=== PATIENT | female | born 1940 | race Caucasian/White ===

== ENCOUNTER 2021-04-05 08:38 | Outpatient (CLI) | payer MEDICARE | END 2021-04-05 08:39 | disposition home or self-care (01) | LOC: CSHRAD 08:38 | PROVIDERS: ATTEND Internal Medicine Cardiovascular Disease | DX: R06.02 Shortness of breath (principal); R06.00 Dyspnea, unspecified; M41.9 Scoliosis, unspecified; Z95.0 Presence of cardiac pacemaker | CPT/HCPCS: 71046 ==

== ENCOUNTER 2021-06-21 10:45 | Outpatient (CLI) | payer MEDICARE ==
[2021-06-21 20:27] LABS: SARS-CoV-2 PCR by NAA Not Detected (NotDetected)
== END 2021-06-21 10:46 | disposition home or self-care (01) ==
LOC: CSHLAB 10:45
PROVIDERS: ATTEND Internal Medicine
DX: Z20.822 Contact with and (suspected) exposure to COVID-19 (principal); Z01.812 Encounter for preprocedural laboratory examination; R13.10 Dysphagia, unspecified
CPT/HCPCS: U0003; U0005

== ENCOUNTER 2021-06-24 09:11 | Outpatient (CLI) | payer MEDICARE | END 2021-06-24 09:12 | disposition home or self-care (01) | LOC: CSHRAD 09:11 | PROVIDERS: ATTEND Internal Medicine | DX: R13.10 Dysphagia, unspecified (principal); K21.9 Gastro-esophageal reflux disease without esophagitis | CPT/HCPCS: 74220 ==

== ENCOUNTER 2022-10-03 15:58 | Outpatient (CLI) | payer MEDICARE | END 2022-10-03 15:59 | disposition home or self-care (01) | LOC: CSHRAD 15:58 | PROVIDERS: ATTEND Nurse Practitioner Adult Health | DX: M25.551 Pain in right hip (principal); W18.30XA Fall on same level, unspecified, initial encounter ==

== ENCOUNTER 2022-10-27 13:28 | Outpatient (CLI) | payer MEDICARE | END 2022-10-27 13:29 | disposition home or self-care (01) | LOC: CSHRAD 13:28 | PROVIDERS: ATTEND Physical Medicine & Rehabilitation | DX: M25.562 Pain in left knee (principal); M17.12 Unilateral primary osteoarthritis, left knee; M25.462 Effusion, left knee ==

== ENCOUNTER 2023-09-12 16:32 | Inpatient (IN) | payer MEDICARE, OTHER ==
[2023-09-12 17:35] LABS: #Eosinphils 0.2 10x3/uL (0.0-0.5); #Monocytes 0.7 10x3/uL (0.0-1.1); #Neutrophils 3.4 10x3/uL (1.5-8.4); %Basophils 0.4 % (0.0-2.0); %Eosinophils 4.1 % (0.0-6.0); %Lymphocytes 19.3 % (18.0-47.0); %Monocytes 13.5 % (0.0-10.0); %Neutrophils 62.5 % (40.0-75.0); Hematocrit 28.9 % (34.9-44.5); Hemoglobin 8.9 g/dL (12.0-15.5); Mean Corpuscular HGB CONC 30.8 g/dL (32.0-36.0); Mean Corpuscular Hemoglobin 25.1 pg (27.0-33.0); Mean Corpuscular Volume 81.4 fl (81.6-98.3); Mean Platelet Volume 11.1 fl (7.4-10.4); Platelet Count 193 10x3/uL (150-450); RBC Distribution Width 17.1 % (11.5-14.5); Red Blood Cell (RBC) Count 3.55 10x6/uL (3.90-5.03); White Blood Cell (WBC) Count 5.4 10x3/uL (3.5-10.5)
[2023-09-12 17:42] LABS: ALT (SGPT) 14 U/L (8-55); AST (SGOT) 18 U/L (5-34); Albumin 3.8 g/dL (3.4-4.8); Alkaline Phosphatase 49 U/L (40-110); Anion Gap 12 mmol/L (10-20); BUN (Urea Nitrogen) 25 mg/dL (9.8-20.1); Bilirubin, Total 0.4 mg/dL (0.2-1.2); Calc. Creatinine Clearance 0 mL/min (70-130); Calcium 8.7 mg/dL (7.8-10.44); Carbon Dioxide 22 mmol/L (23-31); Chloride 107 mmol/L (98-107); Estimated GFR 28; Globulin 2.1 g/dL (2.4-3.5); Glucose 115 mg/dL (83-110); Magnesium 2.3 mg/dL (1.6-2.6); Potassium 4.4 mmol/L (3.5-5.1); Protein, Total 5.9 g/dL (5.8-8.1); Sodium 137 mmol/L (136-145)
[2023-09-12 17:49] LABS: Troponin I 0.011 ng/mL (< 0.028)
[2023-09-12] MEDS ORDERED: Aspirin Chewable 81 MG TAB ONE (18:12)
[2023-09-12 18:19] LABS: INR-International Normal Ratio 1.2; PTT 31.7 sec (22.0-33.0)
[2023-09-12] MEDS ORDERED: Albuterol 2.5 MG (3 mL) NEB ONE (18:29)
[2023-09-12] MEDS ORDERED: Ipratropium Bromide 2.5 ml Neb ONE (18:29)
[2023-09-12] MEDS ORDERED: Calcium Carbonate 500 MG ChewTAB PO PRN (20:04)
[2023-09-12] MEDS ORDERED: Senokot S 8.6-50 MG TAB PO PRN (20:04)
[2023-09-12] MEDS ORDERED: Guaifenesin DM 100-10/5 ML UDCUP PO PRN (20:04)
[2023-09-12] MEDS ORDERED: Ondansetron PF 4 MG/2 ML Vial IVP PRN (20:04)
[2023-09-12] MEDS ORDERED: Ipratropium/Albuterol 3 ML NEB NEB PRN (20:18)
[2023-09-12] MEDS ORDERED: Sodium Chloride 0.9% 1,000 ML IV SCH (21:00)
[2023-09-12] MEDS ORDERED: Enoxaparin 80 MG (0.8 mL) SYRINGE SC SCH (22:30)
[2023-09-12] MEDS: Simvastatin 10 MG TAB PO SCH (23:04)
[2023-09-12] MEDS: guaiFENesin ER 600 MG TAB PO SCH (23:04)
[2023-09-12] MEDS: Benzonatate 100 MG CAP PO SCH (23:04)
[2023-09-12] MEDS: Pregabalin 25 MG CAP PO SCH (23:04)
[2023-09-12] MEDS: rOPINIRole HCl 1 MG TAB PO SCH (23:05)
[2023-09-12] MEDS: Montelukast Sodium 10 mg Tablet PO SCH (23:05)
[2023-09-12 23:59] LABS: SARS-CoV-2 NAA Rapid Test Not Detected (NotDetected)
[2023-09-13 00:54] VITALS: BMI 30.7
[2023-09-13 01:50] LABS: Bilirubin Neg (Negative); Blood, Urine 50 (Negative); Glucose, Urine (Dipstick) Normal (Negative); Ketone, Urine Negative (Negative); Leukocyte 500 (Negative); Nitrite Negative (Negative); Protein, Urine (Dipstick) 30 mg/dl (Neg-Trace); Specific Gravity, Urine 1.025 (1.005-1.030); Urobilinogen Normal mg/dL (Less than 2)
[2023-09-13 02:01] LABS: Clarity Hazy (Clear)
[2023-09-13 02:03] LABS: Bacteria/HPF None Seen HPF (None Seen); Squamous Epithelial 0-3 HPF (0-3)
[2023-09-13 05:31] LABS: #Eosinphils 0.2 10x3/uL (0.0-0.5); #Monocytes 0.7 10x3/uL (0.0-1.1); #Neutrophils 3.1 10x3/uL (1.5-8.4); %Basophils 0.2 % (0.0-2.0); %Eosinophils 4.6 % (0.0-6.0); %Lymphocytes 19.3 % (18.0-47.0); %Monocytes 14.1 % (0.0-10.0); %Neutrophils 61.4 % (40.0-75.0); Hematocrit 26.3 % (34.9-44.5); Mean Corpuscular HGB CONC 30.4 g/dL (32.0-36.0); Mean Corpuscular Hemoglobin 24.4 pg (27.0-33.0); Mean Corpuscular Volume 80.2 fl (81.6-98.3); Mean Platelet Volume 10.8 fl (7.4-10.4); Platelet Count 161 10x3/uL (150-450); Red Blood Cell (RBC) Count 3.28 10x6/uL (3.90-5.03)
[2023-09-13 05:54] LABS: Anion Gap 13 mmol/L (10-20); BUN (Urea Nitrogen) 23 mg/dL (9.8-20.1); Calc. Creatinine Clearance 33 mL/min (70-130); Calcium 8.4 mg/dL (7.8-10.44); Carbon Dioxide 21 mmol/L (23-31); Cardiac Risk 2.4 (Less than 4.5); Chloride 107 mmol/L (98-107); Cholesterol 114 mg/dl (< 200 Desired); Estimated GFR 36; Glucose 112 mg/dL (83-110); HDL Cholesterol 47 mg/dL (>60 Neg Risk); Iron 32 ug/dL (50-170); Iron Binding Capacity, Total 328 mcg/dL (265-497); LDL Cholesterol, Calculated 51 mg/dL; Potassium 4.1 mmol/L (3.5-5.1); Sodium 137 mmol/L (136-145); Triglycerides 78 mg/dL (Less than 150)
[2023-09-13 06:10] LABS: Thyroid Stimulating Hormone 2.4077 uIU/mL (0.35-4.94)
[2023-09-13] MEDS: Mometasone/Formoterol 200/5 60 PUFF INH SCH ×2 (07:30→19:17)
[2023-09-13] MEDS: Ipratropium/Albuterol 3 ML NEB NEB SCH ×3 (07:30→19:17)
[2023-09-13] MEDS: cefTRIAXone\\ROCEPHIN 1 GM in Sodium Chloride 0.9% 100 ML IVPB SCH (07:57)
[2023-09-13] MEDS: Multivitamin W/ Minerals 1 TAB PO SCH (08:52)
[2023-09-13] MEDS: Benzonatate 100 MG CAP PO SCH ×3 (08:53→21:00)
[2023-09-13] MEDS: BuPROPion XL 150 MG ER.TAB PO SCH (08:53)
[2023-09-13] MEDS: Sertraline 25 MG TAB PO SCH (08:53)
[2023-09-13] MEDS: guaiFENesin ER 600 MG TAB PO SCH ×2 (08:54→21:01)
[2023-09-13] MEDS: Atenolol 25 MG TAB PO SCH (08:54)
[2023-09-13] MEDS: Ferrous Sulfate 325 MG TAB PO SCH (08:54)
[2023-09-13] MEDS ORDERED: Clopidogrel Bisulfate 75 MG TAB PO SCH (09:00)
[2023-09-13 09:17] LABS: Ferritin 9.38 ng/mL (10-291)
[2023-09-13 12:41] LABS: Hemoglobin A1c 5.9 % (4.0-6.0)
[2023-09-13] MEDS: Pregabalin 25 MG CAP PO SCH ×2 (15:50→21:00)
[2023-09-13] MEDS ORDERED: Rivaroxaban 10 MG TAB PO SCH (18:00)
[2023-09-13] MEDS ORDERED: Aspirin 81 mg Enteric Coated Tablet PO SCH (18:00)
[2023-09-13] MEDS ORDERED: Enoxaparin 80 MG (0.8 mL) SYRINGE SC SCH (21:00)
[2023-09-13] MEDS: Simvastatin 10 MG TAB PO SCH (21:01)
[2023-09-13] MEDS: Montelukast Sodium 10 mg Tablet PO SCH (21:01)
[2023-09-13] MEDS: rOPINIRole HCl 1 MG TAB PO SCH (21:01)
[2023-09-13] MEDS: Acetaminophen 325 MG TAB PO PRN (21:01)
[2023-09-14] MEDS: cefTRIAXone\\ROCEPHIN 1 GM in Sodium Chloride 0.9% 100 ML IVPB SCH (05:52)
[2023-09-14] MEDS: Ipratropium/Albuterol 3 ML NEB NEB SCH ×2 (06:55→18:45)
[2023-09-14] MEDS: Mometasone/Formoterol 200/5 60 PUFF INH SCH ×2 (07:05→18:45)
[2023-09-14] MEDS: guaiFENesin ER 600 MG TAB PO SCH ×2 (08:21→20:51)
[2023-09-14] MEDS: Sertraline 25 MG TAB PO SCH (08:22)
[2023-09-14] MEDS: BuPROPion XL 150 MG ER.TAB PO SCH (08:22)
[2023-09-14] MEDS: Atenolol 25 MG TAB PO SCH (08:22)
[2023-09-14] MEDS: Aspirin 81 mg Enteric Coated Tablet PO SCH (08:22)
[2023-09-14] MEDS: Multivitamin W/ Minerals 1 TAB PO SCH (08:22)
[2023-09-14] MEDS: Ferrous Sulfate 325 MG TAB PO SCH (08:23)
[2023-09-14 08:44] LABS: Anion Gap 12 mmol/L (10-20); BUN (Urea Nitrogen) 15 mg/dL (9.8-20.1); Calc. Creatinine Clearance 57 mL/min (70-130); Calcium 8.5 mg/dL (7.8-10.44); Carbon Dioxide 22 mmol/L (23-31); Chloride 109 mmol/L (98-107); Estimated GFR 70; Glucose 85 mg/dL (83-110); Potassium 3.7 mmol/L (3.5-5.1); Sodium 139 mmol/L (136-145)
[2023-09-14] MEDS: Pregabalin 25 MG CAP PO SCH ×2 (11:00→20:50)
[2023-09-14] MEDS ORDERED: Rivaroxaban 10 MG TAB PO SCH (17:00)
[2023-09-14] MEDS: Simvastatin 10 MG TAB PO SCH (20:50)
[2023-09-14] MEDS: rOPINIRole HCl 1 MG TAB PO SCH (20:50)
[2023-09-14] MEDS: Montelukast Sodium 10 mg Tablet PO SCH (20:51)
[2023-09-14] MEDS: Acetaminophen 325 MG TAB PO PRN (22:25)
[2023-09-15] MEDS: Aspirin 81 mg Enteric Coated Tablet PO SCH (08:48)
[2023-09-15] MEDS: Pregabalin 25 MG CAP PO SCH (08:48)
[2023-09-15] MEDS: BuPROPion XL 150 MG ER.TAB PO SCH (08:48)
[2023-09-15] MEDS: Ferrous Sulfate 325 MG TAB PO SCH (08:48)
[2023-09-15] MEDS: Sertraline 25 MG TAB PO SCH (08:48)
[2023-09-15] MEDS: guaiFENesin ER 600 MG TAB PO SCH (08:48)
[2023-09-15] MEDS: Atenolol 25 MG TAB PO SCH (08:48)
[2023-09-15] MEDS: Multivitamin W/ Minerals 1 TAB PO SCH (08:48)
[2023-09-15] MEDS: Acetaminophen 325 MG TAB PO PRN (08:54)
[2023-09-15] MEDS ORDERED: hydrALAZINE 25 MG TAB PO PRN (09:07)
[2023-09-15] MEDS: Ipratropium/Albuterol 3 ML NEB NEB SCH (09:10)
[2023-09-15] MEDS: Mometasone/Formoterol 200/5 60 PUFF INH SCH (09:20)
[2023-09-15 12:38] VITALS: TEMP 98
[2023-09-15 14:16] VITALS: BP 174/98
== END 2023-09-15 14:38 | DRG 69 ==
LOC: CSHERS 16:32 → CSHTELE 19:28 → OBSVTOIN 09-14 09:48
PROVIDERS: ADMIT Student in an Organized Health Care Education/Training Program; ATTEND Internal Medicine
PROC: 4A0D7BZ Measurement of Urinary Pressure, Via Natural or Artificial Opening (ICD-10-PCS; principal; 2023-09-14)
DX: I67.82 Cerebral ischemia (principal); G45.9 Transient cerebral ischemic attack, unspecified; N17.9 Acute kidney failure, unspecified; J44.9 Chronic obstructive pulmonary disease, unspecified; D64.9 Anemia, unspecified; I12.9 Hypertensive chronic kidney disease with stage 1 through stage 4 chronic kidney disease, or unspecified chronic kidney disease; N18.9 Chronic kidney disease, unspecified; I49.5 Sick sinus syndrome; E78.5 Hyperlipidemia, unspecified; G25.81 Restless legs syndrome; I25.10 Atherosclerotic heart disease of native coronary artery without angina pectoris; G47.33 Obstructive sleep apnea (adult) (pediatric); F41.9 Anxiety disorder, unspecified; R53.81 Other malaise; D50.9 Iron deficiency anemia, unspecified; I48.0 Paroxysmal atrial fibrillation; F32.A Depression, unspecified; Z79.899 Other long term (current) drug therapy; Z95.1 Presence of aortocoronary bypass graft; Z87.891 Personal history of nicotine dependence; Z95.0 Presence of cardiac pacemaker; Z11.52 Encounter for screening for COVID-19
CPT/HCPCS: 0241U; 36415; 51798; 70450; 70551; 71045; 80048; 80053; 80061; 81001; 82728; 83036; 83540; 83550; 83735; 83880; 84443; 84484; 85025; 85610; 85730; 87086; 93005; 93306; 93880; 94640; 96372; 96374; 96376; G0378; J0696; J1650; J3490; J7050; J7611; J7620

== ENCOUNTER 2025-04-20 06:58 | Inpatient (IN) | payer OTHER ==
[2025-04-20] MEDS ORDERED: Dexamethasone 10 MG/ML VIAL ONE (07:35)
[2025-04-20 07:39] LABS: #Basophils Less than 0.03 10x3/uL (0.0-0.2); #Eosinophils 0.11 10x3/uL (0.0-0.5); #Monocytes 0.63 10x3/uL (0.0-1.1); #Neutrophils 3.48 10x3/uL (1.5-8.4); %Basophils 0.2 % (0.0-2.0); %Eosinophils 2.3 % (0.0-6.0); %Lymphocytes 13.1 % (18.0-47.0); %Monocytes 12.9 % (0.0-10.0); %Neutrophils 71.3 % (40.0-75.0); Hematocrit 35.6 % (34.9-44.5); Hemoglobin 11.3 g/dL (12.0-15.5); Mean Corpuscular Hemoglobin 26.7 pg (27.0-33.0); Mean Corpuscular Volume 84.0 fL (81.6-98.3); Platelet Count 101 10x3/uL (150-450); Red Blood Cell (RBC) Count 4.24 10x6/uL (3.90-5.03); White Blood Cell (WBC) Count 4.88 10x3/uL (3.5-10.5)
[2025-04-20 07:52] LABS: ALT (SGPT) 18 U/L (Less than 34); AST (SGOT) 25 U/L (11-34); Albumin 3.7 g/dL (3.1-4.5); Alkaline Phosphatase 66 U/L (40-110); Anion Gap 16 mmol/L (10-20); BUN (Urea Nitrogen) 10 mg/dL (9.8-20.1); Bilirubin, Total 0.8 mg/dL (0.3-1.2); Calc. Creatinine Clearance 0 mL/min (70-130); Calcium 9.2 mg/dL (7.8-10.44); Carbon Dioxide 20 mmol/L (23-31); Chloride 108 mmol/L (98-107); Globulin 2.5 g/dL (2.4-3.5); Glucose 114 mg/dL (83-110); Potassium 3.5 mmol/L (3.5-5.1); Sodium 140 mmol/L (136-145)
[2025-04-20 07:53] LABS: Troponin I Less than 0.010 ng/mL (< 0.028)
[2025-04-20] MEDS ORDERED: Furosemide 40 MG (4 mL) VIAL ONE (08:35)
[2025-04-20] MEDS ORDERED: Senokot S 8.6-50 MG TAB PO PRN (11:52)
[2025-04-20] MEDS ORDERED: Ondansetron PF 4 MG/2 ML Vial IVP PRN (11:52)
[2025-04-20] MEDS ORDERED: Calcium Carbonate 500 MG ChewTAB PO PRN (11:52)
[2025-04-20] MEDS ORDERED: Glucagon 1 MG/ML KIT IM PRN (11:52)
[2025-04-20] MEDS ORDERED: Electrolyte Replacement Protocol 1 EACH FS SCH ×2 (12:00)
[2025-04-20 12:23] LABS: Magnesium 1.8 mg/dL (1.6-2.6)
[2025-04-20] MEDS ORDERED: cefTRIAXone (ROCEPHIN) 1 GM VIAL ONE (12:36)
[2025-04-20] MEDS: Atenolol 25 MG TAB PO SCH (12:46)
[2025-04-20] MEDS: cefTRIAXone\\ROCEPHIN 1 GM in Sodium Chloride 0.9% 100 ML IVPB SCH (12:46)
[2025-04-20] MEDS ORDERED: Magnesium 2 GM/50 ML(in water) 2 GM in Premix 1 BAG IVPB SCH (13:30)
[2025-04-20] MEDS ORDERED: Azithromycin 500 MG VIAL ONE (13:35)
[2025-04-20] MEDS: Azithromycin 500 MG in Sodium Chloride 0.9% 250 ML 250 ML IVPB SCH (13:44)
[2025-04-20] MEDS ORDERED: Furosemide 40 MG (4 mL) VIAL SLOW IVP SCH (14:00)
[2025-04-20] MEDS: Magnesium 2 GM/50 ML(in water) 2 GM in Premix 1 BAG IVPB SCH (16:37)
[2025-04-20] MEDS: Furosemide 20 MG (2 mL) VIAL SLOW IVP SCH (16:41)
[2025-04-20 18:47] LABS: Potassium 3.6 mmol/L (3.5-5.1)
[2025-04-20] MEDS: Pregabalin 50 MG CAP PO SCH (20:25)
[2025-04-20] MEDS: Famotidine 20 MG TAB PO SCH (20:25)
[2025-04-20] MEDS: PNEUMOC 20-VAL CONJ-DIP CRM/PF 0.5 ML SYRINGE IM ONE (20:27)
[2025-04-20] MEDS: Acetaminophen 325 MG TAB PO PRN (21:00)
[2025-04-20] MEDS: diphenhydrAMINE 25 MG CAP PO PRN (23:16)
[2025-04-21] MEDS: Guaifenesin DM 100-10/5 ML UDCUP PO PRN (00:09)
[2025-04-21 05:39] LABS: #Basophils Less than 0.03 10x3/uL (0.0-0.2); #Eosinophils Less than 0.03 10x3/uL (0.0-0.5); #Monocytes 0.25 10x3/uL (0.0-1.1); #Neutrophils 3.15 10x3/uL (1.5-8.4); %Basophils 0.0 % (0.0-2.0); %Eosinophils 0.0 % (0.0-6.0); %Lymphocytes 9.5 % (18.0-47.0); %Monocytes 6.6 % (0.0-10.0); %Neutrophils 83.6 % (40.0-75.0); Hematocrit 35.8 % (34.9-44.5); Hemoglobin 11.2 g/dL (12.0-15.5); Mean Corpuscular Hemoglobin 26.4 pg (27.0-33.0); Mean Corpuscular Volume 84.2 fL (81.6-98.3); Platelet Count 108 10x3/uL (150-450); Red Blood Cell (RBC) Count 4.25 10x6/uL (3.90-5.03); White Blood Cell (WBC) Count 3.77 10x3/uL (3.5-10.5)
[2025-04-21 05:44] LABS: Anion Gap 15 mmol/L (10-20); BUN (Urea Nitrogen) 14 mg/dL (9.8-20.1); Calc. Creatinine Clearance 48 mL/min (70-130); Calcium 9.6 mg/dL (7.8-10.44); Carbon Dioxide 24 mmol/L (23-31); Chloride 105 mmol/L (98-107); Glucose 160 mg/dL (83-110); Magnesium 2.3 mg/dL (1.6-2.6); Potassium 3.8 mmol/L (3.5-5.1); Sodium 140 mmol/L (136-145)
[2025-04-21] MEDS ORDERED: Aspirin 81 mg Enteric Coated Tablet PO SCH (09:00)
[2025-04-21] MEDS: Losartan 25 MG TAB PO SCH (09:23)
[2025-04-21] MEDS: Atenolol 25 MG TAB PO SCH (09:24)
[2025-04-21] MEDS: Sertraline 100 MG TAB PO SCH (09:25)
[2025-04-21 11:23] LABS: Anion Gap 14 mmol/L (10-20); BUN (Urea Nitrogen) 18 mg/dL (9.8-20.1); Calc. Creatinine Clearance 45 mL/min (70-130); Calcium 9.5 mg/dL (7.8-10.44); Carbon Dioxide 25 mmol/L (23-31); Chloride 104 mmol/L (98-107); Glucose 138 mg/dL (83-110); Potassium 4.1 mmol/L (3.5-5.1); Sodium 139 mmol/L (136-145)
[2025-04-22 05:49] LABS: #Basophils Less than 0.03 10x3/uL (0.0-0.2); #Eosinophils Less than 0.03 10x3/uL (0.0-0.5); #Monocytes 0.16 10x3/uL (0.0-1.1); #Neutrophils 3.34 10x3/uL (1.5-8.4); %Basophils 0.3 % (0.0-2.0); %Eosinophils 0.0 % (0.0-6.0); %Lymphocytes 10.9 % (18.0-47.0); %Monocytes 4.1 % (0.0-10.0); %Neutrophils 84.4 % (40.0-75.0); Hematocrit 39.1 % (34.9-44.5); Hemoglobin 12.3 g/dL (12.0-15.5); Mean Corpuscular Hemoglobin 26.6 pg (27.0-33.0); Mean Corpuscular Volume 84.6 fL (81.6-98.3); Platelet Count 114 10x3/uL (150-450); Red Blood Cell (RBC) Count 4.62 10x6/uL (3.90-5.03); White Blood Cell (WBC) Count 3.95 10x3/uL (3.5-10.5)
[2025-04-22 07:52] LABS: Magnesium 2.1 mg/dL (1.6-2.6)
[2025-04-22] MEDS ORDERED: ALPRAZolam 0.5 MG TAB PO PRN (10:27)
[2025-04-23 05:48] LABS: Anion Gap 12 mmol/L (10-20); BUN (Urea Nitrogen) 30 mg/dL (9.8-20.1); Calc. Creatinine Clearance 45 mL/min (70-130); Calcium 9.4 mg/dL (7.8-10.44); Carbon Dioxide 26 mmol/L (23-31); Chloride 103 mmol/L (98-107); Glucose 142 mg/dL (83-110); Magnesium 2.1 mg/dL (1.6-2.6); Potassium 3.9 mmol/L (3.5-5.1); Sodium 137 mmol/L (136-145)
[2025-04-23] MEDS: Pregabalin 50 MG CAP PO SCH (20:17)
[2025-04-24 04:45] LABS: Anion Gap 13 mmol/L (10-20); BUN (Urea Nitrogen) 29 mg/dL (9.8-20.1); Calc. Creatinine Clearance 48 mL/min (70-130); Calcium 9.6 mg/dL (7.8-10.44); Carbon Dioxide 26 mmol/L (23-31); Chloride 100 mmol/L (98-107); Glucose 130 mg/dL (83-110); Potassium 3.9 mmol/L (3.5-5.1); Sodium 135 mmol/L (136-145)
[2025-04-24] MEDS: BuPROPion XL 150 MG ER.TAB PO SCH (08:49)
[2025-04-24] MEDS: Furosemide 40 MG TAB PO SCH (17:10)
[2025-04-25] MEDS: predniSONE 20 MG TAB PO SCH (08:30)
[2025-04-25] MEDS: Furosemide 40 MG TAB PO SCH (08:31)
[2025-04-25 08:32] VITALS: BP 120/60
[2025-04-25 08:37] VITALS: TEMP 98
== END 2025-04-25 11:12 | disposition home or self-care (01) | DRG 193 ==
LOC: CSHERS 06:58 → INTOOBSV 09:06 → CSHERHOLD 09:06 → UNDOADMOB 09:06 → CSHTELE 14:54 → CSHERHOLD 14:54 → CSHTELE 16:29 → INTOOBSV 04-21 16:00 → OBSVTOIN 04-21 16:00
PROVIDERS: ADMIT Family Medicine; ATTEND Family Medicine
PROC: 3E03329 Introduction of Other Anti-infective into Peripheral Vein, Percutaneous Approach (ICD-10-PCS; principal; 2025-04-22)
PROC: 5A09357 Assistance with Respiratory Ventilation, Less than 24 Consecutive Hours, Continuous Positive Airway Pressure (ICD-10-PCS; principal; 2025-04-22)
DX: J18.9 Pneumonia, unspecified organism (principal); I50.33 Acute on chronic diastolic (congestive) heart failure; J96.01 Acute respiratory failure with hypoxia; J44.1 Chronic obstructive pulmonary disease with (acute) exacerbation; J44.0 Chronic obstructive pulmonary disease with (acute) lower respiratory infection; I48.21 Permanent atrial fibrillation; E78.5 Hyperlipidemia, unspecified; I11.0 Hypertensive heart disease with heart failure; G47.33 Obstructive sleep apnea (adult) (pediatric); I25.10 Atherosclerotic heart disease of native coronary artery without angina pectoris; I49.5 Sick sinus syndrome; Z88.8 Allergy status to other drugs, medicaments and biological substances; Z59.5 Extreme poverty; Z79.899 Other long term (current) drug therapy; Z95.0 Presence of cardiac pacemaker; Z86.16 Personal history of COVID-19; R63.4 Abnormal weight loss; I45.10 Unspecified right bundle-branch block; I49.1 Atrial premature depolarization; Z86.73 Personal history of transient ischemic attack (TIA), and cerebral infarction without residual deficits; F41.9 Anxiety disorder, unspecified; F32.A Depression, unspecified; G25.81 Restless legs syndrome; Z95.1 Presence of aortocoronary bypass graft; Z95.5 Presence of coronary angioplasty implant and graft; Z87.891 Personal history of nicotine dependence; D64.9 Anemia, unspecified; D69.6 Thrombocytopenia, unspecified; Z90.49 Acquired absence of other specified parts of digestive tract; Z96.611 Presence of right artificial shoulder joint; Z90.710 Acquired absence of both cervix and uterus; Z98.890 Other specified postprocedural states; Z79.82 Long term (current) use of aspirin
CPT/HCPCS: 36415; 71045; 80048; 80053; 83605; 83735; 83880; 84484; 85025; 93005; 93306; 94760; 94762; 96374; 96375; 96376; G0378; J0456; J0696; J1100; J1940; J2919; J3475; J7050; J7512